=== PATIENT | female | born 1990 | race African-American/Black ===

== ENCOUNTER 2023-09-02 18:39 | Emergency (ER) | payer OTHER ==
[~2023-09-02] VITALS: Ht 170.2 cm; Wt 104.5 kg
[2023-09-02 18:58] VITALS: TEMP 98.3
[2023-09-02] MEDS ORDERED: ACETAMINOPHEN 500 MG TABLET PO ONE (20:15)
[2023-09-02] MEDS ORDERED: LIDOCAINE 5% TRANSDERMAL PATCH TD ONE (20:15)
[2023-09-02] MEDS ORDERED: IBUP-1492 PO (20:35)
[2023-09-02] MEDS ORDERED: ACET-3385 PO (20:35)
[2023-09-02] MEDS ORDERED: LIDO700A15 TP (20:35)
[2023-09-02 20:53] LABS: APPEARANCE,URINE CLEAR (CLEAR); BILIRUBIN,URINE NEGATIVE (NEGATIVE); COLOR,URINE YELLOW (YELLOW); GLUCOSE, URINE (UA) NEGATIVE (NEGATIVE); KETONES,URINE TRACE mg/dL (NEGATIVE); LEUKOCYTE ESTERASE ,URINE SMALL (NEGATIVE); NITRATE,URINE NEGATIVE (NEGATIVE); OCCULT BLOOD,URINE NEGATIVE (NEGATIVE); PROTEIN,URINE 30-70 mg/dL (NEGATIVE)
[2023-09-02 21:01] LABS: BACTERIA,URINE Few /HPF (None Seen); RBC,URINE 0-2 /HPF (0-2); SQUAMOUS EPITHELIAL CELL,UR Few /LPF (None Seen)
[2023-09-02] MEDS ORDERED: CEPH-558 PO (21:06)
[2023-09-02] MEDS ORDERED: CEPHALEXIN MONOHYDRATE 500 MG CAPSULE PO ONE (21:15)
[2023-09-02 22:05] VITALS: BP 143/75; PULSE 92; RESP 18
== END 2023-09-02 22:06 | disposition home or self-care (01) ==
LOC: EMS 18:57
DX: S39.012A Strain of muscle, fascia and tendon of lower back, initial encounter (principal); N39.0 Urinary tract infection, site not specified; X58.XXXA Exposure to other specified factors, initial encounter; Y93.89 Activity, other specified; Y92.89 Other specified places as the place of occurrence of the external cause; Y99.8 Other external cause status
CPT/HCPCS: 81001; 84703; 87086; 87186; 99284; Z7502; Z7610

== ENCOUNTER 2023-10-05 17:19 | Emergency (ER) | payer OTHER ==
[~2023-10-05] VITALS: Ht 175.3 cm; Wt 145.4 kg
[~2023-10-05 17:19] MED LIST: ACET-3385 PO; CEPH-558 PO; IBUP-1492 PO; LIDO700A15 TP
[2023-10-05 18:28] VITALS: BP 136/86; PULSE 62; RESP 16; TEMP 98
== END 2023-10-05 20:10 | disposition left against medical advice (07) ==
LOC: EMS 17:19
DX: S61.210A Laceration without foreign body of right index finger without damage to nail, initial encounter (principal); Z53.21 Procedure and treatment not carried out due to patient leaving prior to being seen by health care provider; X58.XXXA Exposure to other specified factors, initial encounter; Y93.89 Activity, other specified; Y92.89 Other specified places as the place of occurrence of the external cause; Y99.8 Other external cause status
CPT/HCPCS: 99281; Z7502